=== PATIENT | male | born 1975 | race Hispanic/Latino ===

== ENCOUNTER 2021-06-04 20:37 | Inpatient (IN) | payer MEDICARE, OTHER ==
[~2021-06-04] VITALS: Ht 172.7 cm; Wt 83.5 kg
[2021-06-04 23:16] LABS: BASOPHILS % (AUTO) 0.4 % (0.0-5.0); EOSINOPHILS % (AUTO) 4.3 % (0.0-8.0); HEMATOCRIT 38.2 % (42-54); LYMPHOCYTES % (AUTO) 37.3 % (21.0-51.0); MEAN CORPUSCULAR HEMOGLOBIN 27.9 pg (27.0-33.0); MEAN CORPUSCULAR HGB CONC 31.9 g/dL (32.0-36.0); MEAN CORPUSCULAR VOLUME 87.2 fL (79-99); MONOCYTES % (AUTO) 7.2 % (3.0-13.0); NEUTROPHILS % (AUTO) 50.3 % (40.0-77.0); PLATELET COUNT (AUTO) 194 K/uL (130-400); RED BLOOD CELL COUNT(AUTO) 4.38 MIL/uL (4.50-6.20); RED CELL DISTRIBUTION WIDTH 13.4 % (11.0-15.5); WHITE BLOOD COUNT (AUTO) 8.6 K/uL (4.8-10.8)
[2021-06-04 23:30] LABS: ALBUMIN 3.7 g/dL (3.5-5.0); BILIRUBIN,TOTAL 0.2 mg/dL (0.2-1.0); CREATININE 4.6 mg/dL (0.5-1.5); POTASSIUM 4.6 mmol/L (3.5-5.1); TOTAL PROTEIN, SERUM 8.3 g/dL (6.0-8.3)
[2021-06-04 23:47] LABS: INR 0.99 (0.85-1.15); PROTHROMBIN TIME 10.8 SEC (9.6-11.6)
[2021-06-04 23:49] LABS: PARTIAL THROMBOPLASTIN TIME 28.5 SEC (26.3-35.5)
[2021-06-05] VITALS (23 sets, daily range): BP systolic 90–163; BP diastolic 49–99
[2021-06-05] MEDS ORDERED: ONDANSETRON 4MG INJ IV PRN (01:30)
[2021-06-05 02:09] LABS: HEMATOCRIT 36.7 % (42-54); MEAN CORPUSCULAR HEMOGLOBIN 28.2 pg (27.0-33.0); MEAN CORPUSCULAR HGB CONC 32.7 g/dL (32.0-36.0); MEAN CORPUSCULAR VOLUME 86.2 fL (79-99); RED BLOOD CELL COUNT(AUTO) 4.26 MIL/uL (4.50-6.20); RED CELL DISTRIBUTION WIDTH 13.4 % (11.0-15.5)
[2021-06-05 02:23] LABS: ALBUMIN 3.6 g/dL (3.5-5.0); BILIRUBIN,TOTAL 0.2 mg/dL (0.2-1.0); CREATININE 4.5 mg/dL (0.5-1.5); TOTAL PROTEIN, SERUM 8.2 g/dL (6.0-8.3)
[2021-06-05] MEDS: CLINDAMYCIN IVPB 600MG/50ML 50 ML IV SCH ×2 (02:29→10:38)
[2021-06-05] MEDS ORDERED: GLUCAGON 1MG KIT 1 MG ML IM PRN (02:30)
[2021-06-05] MEDS ORDERED: DEXTROSE 50%-WATER 50 ML DISP.SYRIN IV PRN (02:30)
[2021-06-05 02:33] LABS: INR 0.99 (0.85-1.15); PROTHROMBIN TIME 10.8 SEC (9.6-11.6)
[2021-06-05 02:34] LABS: PARTIAL THROMBOPLASTIN TIME 29.1 SEC (26.3-35.5)
[2021-06-05] MEDS: INSULIN HUMULIN R 100 UNIT/ML 3ML SQ SCH ×3 (05:48→16:35)
[2021-06-05] MEDS: FAMOTIDINE 20MG VIAL IV SCH ×2 (10:38→20:31)
[2021-06-05] MEDS ORDERED: VANCOMYCIN PROTOCOL PER PHARMACY IV SCH (14:00)
[2021-06-05] MEDS ORDERED: PHARMACY COMMUNICATION MISC SCH (14:00)
[2021-06-05] MEDS ORDERED: COMPOUND IV REFRIGERATED 1 EACH IVSOLN MISC PRN (14:30)
[2021-06-05] MEDS: VANCOMYCIN 1.25GM/NS 250ML IVPB SCH ×6 (14:30→20:32)
[2021-06-05] MEDS ORDERED: DIPH,PERTUSS(ACELL),TET VAC/PF 0.5 ML VIAL IM ONE (15:00)
[2021-06-05] MEDS ORDERED: 0.9%NACL 1000ML 1,000 ML IV PRN (17:00)
[2021-06-05] MEDS: 0.9%NACL 50ML 50 ML IV SCH (22:37)
[2021-06-05] MEDS: ZOSYN 3.375GM +NS 50ML IV SCH (22:37)
[2021-06-06] VITALS (24 sets, daily range): BP systolic 76–163; BP diastolic 44–97
[2021-06-06] MEDS ORDERED: METF-446 PO (03:25)
[2021-06-06] MEDS ORDERED: FAMO20TA8 PO (03:25)
[2021-06-06] MEDS ORDERED: DOXY-336 PO (03:25)
[2021-06-06] MEDS ORDERED: MUPI22O TP (03:25)
[2021-06-06] MEDS ORDERED: [UNRECOGNIZED DRUG - CODE] IV (03:25)
[2021-06-06] MEDS ORDERED: LISI20TA24 PO (03:25)
[2021-06-06] MEDS ORDERED: AMLO-257 PO (03:25)
[2021-06-06] MEDS ORDERED: GABA600T10 PO (03:25)
[2021-06-06] MEDS ORDERED: FLUO10CA21 PO (03:25)
[2021-06-06] MEDS ORDERED: METO100T14 PO (03:25)
[2021-06-06] MEDS ORDERED: FOLI0.4T6 PO (03:25)
[2021-06-06 05:24] LABS: BASOPHILS % (AUTO) 0.4 % (0.0-5.0); EOSINOPHILS % (AUTO) 4.2 % (0.0-8.0); HEMATOCRIT 36.6 % (42-54); LYMPHOCYTES % (AUTO) 26.4 % (21.0-51.0); MEAN CORPUSCULAR HEMOGLOBIN 27.5 pg (27.0-33.0); MEAN CORPUSCULAR HGB CONC 32.2 g/dL (32.0-36.0); MEAN CORPUSCULAR VOLUME 85.3 fL (79-99); MONOCYTES % (AUTO) 7.9 % (3.0-13.0); NEUTROPHILS % (AUTO) 60.6 % (40.0-77.0); PLATELET COUNT (AUTO) 178 K/uL (130-400); RED BLOOD CELL COUNT(AUTO) 4.29 MIL/uL (4.50-6.20); RED CELL DISTRIBUTION WIDTH 13.2 % (11.0-15.5); WHITE BLOOD COUNT (AUTO) 8.3 K/uL (4.8-10.8)
[2021-06-06 05:38] LABS: ALBUMIN 3.3 g/dL (3.5-5.0); BILIRUBIN,TOTAL 0.4 mg/dL (0.2-1.0); CREATININE 3.9 mg/dL (0.5-1.5); POTASSIUM 4.8 mmol/L (3.5-5.1); TOTAL PROTEIN, SERUM 7.7 g/dL (6.0-8.3)
[2021-06-06] MEDS: INSULIN HUMULIN R 100 UNIT/ML 3ML SQ SCH ×5 (06:00→23:53)
[2021-06-06] MEDS ORDERED: LIDOCAINE HCL 1% 20 ML VIAL ONE (06:59)
[2021-06-06] MEDS ORDERED: BUPIVACAINE/PF 0.5% 30ML VIAL ONE (06:59)
[2021-06-06] MEDS ORDERED: FENTANYL CITRATE PF 50 MCG/1 ML 2ML VIAL ONE ×2 (07:53→08:25)
[2021-06-06] MEDS ORDERED: MIDAZOLAM HCL 1 MG/ML 2ML VIAL ONE ×2 (07:53→08:34)
[2021-06-06] MEDS: FAMOTIDINE 20MG VIAL IV SCH ×2 (08:42→20:18)
[2021-06-06] MEDS: ZOSYN 3.375GM +NS 50ML IV SCH ×2 (09:58→20:18)
[2021-06-06] MEDS: 0.9%NACL 50ML 50 ML IV SCH (20:18)
[2021-06-06] MEDS ORDERED: HYDROMORPHONE 0.5 MG SYG (0.5MG/0.5ML) ONE (23:19)
[2021-06-06] MEDS: HYDROMORPHONE 0.5 MG SYG (0.5MG/0.5ML) IVP PRN (23:26)
[2021-06-06] MEDS ORDERED: MORPHINE 2 MG SYG IVP PRN (23:30)
[2021-06-07] VITALS (18 sets, daily range): BP systolic 82–161; BP diastolic 39–97
[2021-06-07 04:28] LABS: BASOPHILS % (AUTO) 0.2 % (0.0-5.0); EOSINOPHILS % (AUTO) 3.6 % (0.0-8.0); HEMATOCRIT 36.5 % (42-54); LYMPHOCYTES % (AUTO) 22.6 % (21.0-51.0); MEAN CORPUSCULAR HEMOGLOBIN 27.9 pg (27.0-33.0); MEAN CORPUSCULAR HGB CONC 32.3 g/dL (32.0-36.0); MEAN CORPUSCULAR VOLUME 86.3 fL (79-99); MONOCYTES % (AUTO) 8.5 % (3.0-13.0); NEUTROPHILS % (AUTO) 64.8 % (40.0-77.0); PLATELET COUNT (AUTO) 194 K/uL (130-400); RED BLOOD CELL COUNT(AUTO) 4.23 MIL/uL (4.50-6.20); RED CELL DISTRIBUTION WIDTH 13.3 % (11.0-15.5); WHITE BLOOD COUNT (AUTO) 9.1 K/uL (4.8-10.8)
[2021-06-07 05:15] LABS: ALBUMIN 3.4 g/dL (3.5-5.0); BILIRUBIN,TOTAL 0.3 mg/dL (0.2-1.0); CREATININE 5.2 mg/dL (0.5-1.5); TOTAL PROTEIN, SERUM 7.8 g/dL (6.0-8.3)
[2021-06-07] MEDS: INSULIN HUMULIN R 100 UNIT/ML 3ML SQ SCH ×3 (06:00→18:00)
[2021-06-07] MEDS: HYDROMORPHONE 0.5 MG SYG (0.5MG/0.5ML) IVP PRN ×4 (06:37→21:21)
[2021-06-07] MEDS: FAMOTIDINE 20MG VIAL IV SCH ×2 (09:20→20:44)
[2021-06-07] MEDS: ZOSYN 3.375GM +NS 50ML IV SCH ×2 (09:20→20:44)
[2021-06-07] MEDS: GABAPENTIN 300 MG CAPSULE PO SCH ×2 (10:39→21:00)
[2021-06-07] MEDS: METOPROLOL TARTRATE 50 MG TAB PO SCH ×2 (10:39→21:00)
[2021-06-07] MEDS: FOLIC ACID 1 MG TABLET PO SCH (12:22)
[2021-06-07] MEDS: 0.9%NACL 50ML 50 ML IV SCH (20:44)
[2021-06-07] MEDS ORDERED: NON-FORMULARY MEDICATION 1 EACH (Metoprolol Tartrate 100 MG) PO SCH (21:00)
[2021-06-07] MEDS: AMLODIPINE 5 MG TAB PO SCH (21:00)
[2021-06-08] VITALS (11 sets, daily range): BP systolic 98–153; BP diastolic 50–81
[2021-06-08] MEDS: VANCOMYCIN 1.25GM/NS 250ML IVPB SCH ×2 (01:10)
[2021-06-08] MEDS: HYDROMORPHONE 0.5 MG SYG (0.5MG/0.5ML) IVP PRN ×2 (03:57→10:32)
[2021-06-08 05:44] LABS: BASOPHILS % (AUTO) 0.2 % (0.0-5.0); MEAN CORPUSCULAR HEMOGLOBIN 27.7 pg (27.0-33.0); MEAN CORPUSCULAR HGB CONC 32.6 g/dL (32.0-36.0); MEAN CORPUSCULAR VOLUME 85.2 fL (79-99); MONOCYTES % (AUTO) 10.7 % (3.0-13.0); NEUTROPHILS % (AUTO) 57.7 % (40.0-77.0); PLATELET COUNT (AUTO) 166 K/uL (130-400); RED BLOOD CELL COUNT(AUTO) 3.64 MIL/uL (4.50-6.20); RED CELL DISTRIBUTION WIDTH 13.2 % (11.0-15.5); WHITE BLOOD COUNT (AUTO) 8.3 K/uL (4.8-10.8)
[2021-06-08] MEDS: INSULIN HUMULIN R 100 UNIT/ML 3ML SQ SCH ×5 (05:48→20:54)
[2021-06-08 06:00] LABS: ALBUMIN 2.9 g/dL (3.5-5.0); BILIRUBIN,TOTAL 0.3 mg/dL (0.2-1.0); CREATININE 3.9 mg/dL (0.5-1.5); POTASSIUM 4.2 mmol/L (3.5-5.1)
[2021-06-08 08:14] LABS: HEPATITIS Bs ANTIGEN SCREEN P Negative (Negative)
[2021-06-08] MEDS: FAMOTIDINE 20MG VIAL IV SCH ×2 (08:38→20:53)
[2021-06-08] MEDS: GABAPENTIN 300 MG CAPSULE PO SCH ×2 (08:38→20:53)
[2021-06-08] MEDS: ZOSYN 3.375GM +NS 50ML IV SCH ×2 (08:38→20:52)
[2021-06-08] MEDS: METOPROLOL TARTRATE 50 MG TAB PO SCH ×2 (08:38→20:53)
[2021-06-08] MEDS: FLUOXETINE HCL 10 MG CAPSULE PO SCH (08:39)
[2021-06-08] MEDS: 0.9%NACL 50ML 50 ML IV SCH ×2 (08:39→20:52)
[2021-06-08] MEDS ORDERED: LISINOPRIL 20 MG TABLET PO SCH (09:00)
[2021-06-08] MEDS: FOLIC ACID 1 MG TABLET PO SCH (12:00)
[2021-06-08] MEDS: HYDROCODONE/ACETAMINOPHEN 5/325 MG TAB PO PRN (18:19)
[2021-06-08] MEDS: AMLODIPINE 5 MG TAB PO SCH (20:53)
[2021-06-09] VITALS (18 sets, daily range): BP systolic 102–159; BP diastolic 52–94
[2021-06-09] MEDS: HYDROCODONE/ACETAMINOPHEN 5/325 MG TAB PO PRN (02:05)
[2021-06-09] MEDS: INSULIN HUMULIN R 100 UNIT/ML 3ML SQ SCH (06:00)
[2021-06-09 06:21] LABS: BASOPHILS % (AUTO) 0.2 % (0.0-5.0); HEMATOCRIT 33.3 % (42-54); LYMPHOCYTES % (AUTO) 28.3 % (21.0-51.0); MEAN CORPUSCULAR HEMOGLOBIN 27.6 pg (27.0-33.0); MEAN CORPUSCULAR HGB CONC 31.8 g/dL (32.0-36.0); MEAN CORPUSCULAR VOLUME 86.7 fL (79-99); MONOCYTES % (AUTO) 8.5 % (3.0-13.0); NEUTROPHILS % (AUTO) 59.6 % (40.0-77.0); PLATELET COUNT (AUTO) 180 K/uL (130-400); RED BLOOD CELL COUNT(AUTO) 3.84 MIL/uL (4.50-6.20); RED CELL DISTRIBUTION WIDTH 13.2 % (11.0-15.5); WHITE BLOOD COUNT (AUTO) 10.3 K/uL (4.8-10.8)
[2021-06-09 06:31] LABS: CREATININE 5.5 mg/dL (0.5-1.5); POTASSIUM 4.5 mmol/L (3.5-5.1)
[2021-06-09] MEDS: METOPROLOL TARTRATE 50 MG TAB PO SCH (09:00)
[2021-06-09] MEDS: FAMOTIDINE 20MG VIAL IV SCH (09:56)
[2021-06-09] MEDS: 0.9%NACL 50ML 50 ML IV SCH (09:56)
[2021-06-09] MEDS: FLUOXETINE HCL 10 MG CAPSULE PO SCH (09:56)
[2021-06-09] MEDS: ZOSYN 3.375GM +NS 50ML IV SCH (09:56)
[2021-06-09] MEDS: GABAPENTIN 300 MG CAPSULE PO SCH (09:56)
[2021-06-09] MEDS: HYDROMORPHONE 0.5 MG SYG (0.5MG/0.5ML) IVP PRN (09:57)
[2021-06-09] MEDS: FOLIC ACID 1 MG TABLET PO SCH (14:44)
[2021-06-09] MEDS: VANCOMYCIN 1.25GM/NS 250ML IVPB SCH ×2 (14:45)
== END 2021-06-09 19:20 | disposition home health service (06) | DRG 617 ==
LOC: EDH 20:37 → EDHIP 06-05 01:21 → 3BH 06-05 04:37
PROVIDERS: ADMIT Internal Medicine; ATTEND Internal Medicine
PROC: 3E0234Z Introduction of Serum, Toxoid and Vaccine into Muscle, Percutaneous Approach (ICD-10-PCS; 2021-06-05)
PROC: 5A1D70Z Performance of Urinary Filtration, Intermittent, Less than 6 Hours Per Day (ICD-10-PCS; 2021-06-05)
PROC: 0Y6M0ZB Detachment at Right Foot, Partial 2nd Ray, Open Approach (ICD-10-PCS; 2021-06-06)
PROC: 0Y6M0ZC Detachment at Right Foot, Partial 3rd Ray, Open Approach (ICD-10-PCS; 2021-06-06)
PROC: 0Y6M0ZD Detachment at Right Foot, Partial 4th Ray, Open Approach (ICD-10-PCS; 2021-06-06)
PROC: 0Y6M0ZF Detachment at Right Foot, Partial 5th Ray, Open Approach (ICD-10-PCS; 2021-06-06)
PROC: 0Y6M0Z9 Detachment at Right Foot, Partial 1st Ray, Open Approach (ICD-10-PCS; principal; 2021-06-06 08:20)
PROC: 5A1D70Z Performance of Urinary Filtration, Intermittent, Less than 6 Hours Per Day (ICD-10-PCS; 2021-06-07)
PROC: 5A1D70Z Performance of Urinary Filtration, Intermittent, Less than 6 Hours Per Day (ICD-10-PCS; 2021-06-08)
PROC: 5A1D70Z Performance of Urinary Filtration, Intermittent, Less than 6 Hours Per Day (ICD-10-PCS; 2021-06-09)
DX: E11.621 Type 2 diabetes mellitus with foot ulcer (principal); I12.0 Hypertensive chronic kidney disease with stage 5 chronic kidney disease or end stage renal disease; E11.69 Type 2 diabetes mellitus with other specified complication; N18.6 End stage renal disease; E11.22 Type 2 diabetes mellitus with diabetic chronic kidney disease; E11.40 Type 2 diabetes mellitus with diabetic neuropathy, unspecified; D64.9 Anemia, unspecified; L97.519 Non-pressure chronic ulcer of other part of right foot with unspecified severity; M20.41 Other hammer toe(s) (acquired), right foot; E78.00 Pure hypercholesterolemia, unspecified; Z20.822 Contact with and (suspected) exposure to COVID-19; R53.81 Other malaise; Z23 Encounter for immunization; Z79.84 Long term (current) use of oral hypoglycemic drugs; Z99.2 Dependence on renal dialysis; Z83.3 Family history of diabetes mellitus
CPT/HCPCS: 36415; 73610; 73718; 80048; 80053; 80202; 82948; 83735; 85025; 85027; 85610; 85730; 86704; 86706; 87340; 87635; 90715; 90935; 93926; 97039; G0378; J1170; J2250; J2543; J3010; J3370; J3490; J7030; J7050

== ENCOUNTER 2024-06-14 16:20 | Inpatient (IN) | payer OTHER ==
[~2024-06-14] VITALS: Ht 172.7 cm; Wt 93.2 kg
[~2024-06-14 16:20] MED LIST: FAMO20TA8 PO; FLUO10CA21 PO; FOLI0.4T6 PO; GABA300C PO; METO25 PO; METO25TA6 PO; MUPI22O TP; SEVE800 PO
[2024-06-14] MEDS: acetaMINOPHEN 500 MG TABLET PO ONE (16:50)
[2024-06-14 17:09] LABS: BASOPHILS # (AUTO) 0.03 K/uL (0.00-0.20); BASOPHILS % (AUTO) 0.2 % (0.0-5.0); EOSINOPHILS % (AUTO) 0.6 % (0.0-8.0); HEMATOCRIT 40.6 % (42-54); IMMATURE GRANULOCYTE ABSOLUTE 0.08 K/uL (0-1); LYMPHOCYTES # (AUTO) 1.2 K/uL (1.0-4.8); LYMPHOCYTES % (AUTO) 7.7 % (21.0-51.0); MEAN CORPUSCULAR HEMOGLOBIN 28.3 pg (27.0-33.0); MEAN CORPUSCULAR HGB CONC 33.5 g/dL (32.0-36.0); MEAN CORPUSCULAR VOLUME 84.6 fL (79-99); MONOCYTES # (AUTO) 1.1 K/uL (0.1-1.0); MONOCYTES % (AUTO) 6.7 % (3.0-13.0); NEUTROPHILS # (AUTO) 13.2 K/uL (1.8-7.7); NEUTROPHILS % (AUTO) 84.3 % (40.0-77.0); PLATELET COUNT (AUTO) 157 K/uL (130-400); RED CELL DISTRIBUTION WIDTH 13.6 % (11.0-15.5); WHITE BLOOD COUNT (AUTO) 15.7 K/uL (4.8-10.8)
[2024-06-14 17:24] LABS: APPEARANCE,URINE TURBID (CLEAR); BILIRUBIN,URINE NEGATIVE (NEGATIVE); COLOR,URINE YELLOW (YELLOW); GLUCOSE, URINE (UA) 300 mg/dL (NEGATIVE); KETONES,URINE NEGATIVE (NEGATIVE); LEUKOCYTE ESTERASE ,URINE 500 Leu/uL (NEGATIVE); NITRATE,URINE NEGATIVE (NEGATIVE); OCCULT BLOOD,URINE SMALL (NEGATIVE); PH,URINE 7.5 (5.0-8.0); PROTEIN,URINE 300 mg/dL (NEGATIVE); UROBILINOGEN,URINE 0.2 mg/dL (0.2-1.0)
[2024-06-14 17:27] LABS: ADD UA MICROSCOPIC YES
[2024-06-14 17:29] LABS: POTASSIUM 4.4 mmol/L (3.5-5.1)
[2024-06-14 17:33] LABS: SARS-CoV-2, RNA, NAAT NEGATIVE SARS CoV-2 (NEGATIVE)
[2024-06-14 17:33] LABS: ALBUMIN 3.5 g/dL (3.5-5.0); BILIRUBIN,TOTAL 0.5 mg/dL (0.2-1.0); TOTAL PROTEIN, SERUM 7.7 g/dL (6.0-8.3)
[2024-06-14 17:39] LABS: INFLUENZA TYPE A Negative For Type A (NEGATIVE); INFLUENZA TYPE B Negative For Type B (NEGATIVE)
[2024-06-14 17:45] LABS: BACTERIA,URINE RARE /HPF (None Seen); SQUAMOUS EPITHELIAL CELL,UR RARE /HPF (0-2); WBC CLUMP MANY /HPF (0-1); WBC,URINE TNTC /HPF (0-1)
[2024-06-14] MEDS: cefTRIAXone 1G VIAL IVPB STA (18:24)
[2024-06-14] MEDS ORDERED: ONDANSETRON 4MG INJ IV PRN (19:00)
[2024-06-14] MEDS ORDERED: MORPHINE 4 MG SYG IV PRN (19:00)
[2024-06-14] MEDS ORDERED: hydrALAZine 20MG/ML VIAL IV PRN (19:00)
[2024-06-14] MEDS: ZOSYN 3.375GM+NS 50ML 50 ML IV SCH (20:31)
[2024-06-14] MEDS: HEParin 5,000 UNIT VIAL SQ SCH (20:31)
[2024-06-14 21:24] VITALS: BP 115/69; PULSE 125; RESP 19
[2024-06-14] MEDS: acetaMINOPHEN 325 MG TAB PO PRN (22:40)
[2024-06-14 23:41] VITALS: BP 155/86; PULSE 119; RESP 18
[2024-06-15 04:59] VITALS: BP 94/55; PULSE 106; RESP 18
[2024-06-15] MEDS: INSULIN humuLIN R 100 UNIT/ML 3ML SQ SCH (05:17)
[2024-06-15 06:16] LABS: BASOPHILS # (AUTO) 0.04 K/uL (0.00-0.20); BASOPHILS % (AUTO) 0.2 % (0.0-5.0); EOSINOPHILS # (AUTO) 0.03 K/uL (0.00-0.70); EOSINOPHILS % (AUTO) 0.1 % (0.0-8.0); HEMATOCRIT 37.6 % (42-54); IMMATURE GRANULOCYTE ABSOLUTE 0.18 K/uL (0-1); LYMPHOCYTES # (AUTO) 2.3 K/uL (1.0-4.8); MEAN CORPUSCULAR HEMOGLOBIN 28.4 pg (27.0-33.0); MEAN CORPUSCULAR HGB CONC 33.5 g/dL (32.0-36.0); MEAN CORPUSCULAR VOLUME 84.9 fL (79-99); MONOCYTES # (AUTO) 1.8 K/uL (0.1-1.0); MONOCYTES % (AUTO) 8.2 % (3.0-13.0); NEUTROPHILS # (AUTO) 18.1 K/uL (1.8-7.7); NEUTROPHILS % (AUTO) 80.7 % (40.0-77.0); PLATELET COUNT (AUTO) 146 K/uL (130-400); RED BLOOD CELL COUNT(AUTO) 4.43 MIL/uL (4.50-6.20); RED CELL DISTRIBUTION WIDTH 13.8 % (11.0-15.5); WHITE BLOOD COUNT (AUTO) 22.4 K/uL (4.8-10.8)
[2024-06-15 06:25] LABS: CREATININE 6.2 mg/dL (0.5-1.3); MAGNESIUM 1.7 mg/dL (1.80-2.40); PHOSPHORUS 2.6 mg/dL (2.5-4.9); POTASSIUM 4.8 mmol/L (3.5-5.1)
[2024-06-15] MEDS: PANTOPRAZOLE 40 MG TAB DR PO SCH (07:05)
[2024-06-15 07:32] LABS: HEMOGLOBIN A1C 6.7 % (4.0-6.0)
[2024-06-15 08:00] VITALS: BP 101/57; PULSE 113; RESP 20; O2SAT 93
[2024-06-15 11:51] VITALS: BP 117/64; PULSE 94; RESP 18
[2024-06-15 14:54] LABS: MAGNESIUM 1.9 mg/dL (1.80-2.40); PHOSPHORUS 3.4 mg/dL (2.5-4.9)
[2024-06-15 16:00] VITALS: BP 136/78; PULSE 104; RESP 18
[2024-06-15] MEDS ORDERED: GABA600T10 PO (18:55)
[2024-06-15] MEDS ORDERED: CHOL200013 PO (18:55)
[2024-06-15] MEDS ORDERED: LANT500T2 PO (18:55)
[2024-06-15] MEDS ORDERED: GLIP5TAB15 PO (18:55)
[2024-06-15] MEDS ORDERED: SERT-440 PO (18:55)
[2024-06-15] MEDS ORDERED: LISI20TA24 PO (18:55)
[2024-06-15 20:00] VITALS: BP 154/77; PULSE 113; RESP 18; O2SAT 98
[2024-06-16] VITALS (7 sets, daily range): BP systolic 133–156; BP diastolic 55–95; PULSE 104–122; RESP 17–20; O2SAT 97
[2024-06-16 04:39] LABS: BASOPHILS # (AUTO) 0.04 K/uL (0.00-0.20); BASOPHILS % (AUTO) 0.2 % (0.0-5.0); EOSINOPHILS # (AUTO) 0.15 K/uL (0.00-0.70); EOSINOPHILS % (AUTO) 0.9 % (0.0-8.0); HEMATOCRIT 35.6 % (42-54); IMMATURE GRANULOCYTE ABSOLUTE 0.08 K/uL (0-1); LYMPHOCYTES # (AUTO) 1.7 K/uL (1.0-4.8); LYMPHOCYTES % (AUTO) 10.3 % (21.0-51.0); MEAN CORPUSCULAR HEMOGLOBIN 28.8 pg (27.0-33.0); MEAN CORPUSCULAR HGB CONC 33.7 g/dL (32.0-36.0); MEAN CORPUSCULAR VOLUME 85.6 fL (79-99); MONOCYTES # (AUTO) 0.9 K/uL (0.1-1.0); MONOCYTES % (AUTO) 5.6 % (3.0-13.0); NEUTROPHILS # (AUTO) 13.5 K/uL (1.8-7.7); NEUTROPHILS % (AUTO) 82.5 % (40.0-77.0); PLATELET COUNT (AUTO) 140 K/uL (130-400); RED BLOOD CELL COUNT(AUTO) 4.16 MIL/uL (4.50-6.20); RED CELL DISTRIBUTION WIDTH 13.5 % (11.0-15.5); WHITE BLOOD COUNT (AUTO) 16.3 K/uL (4.8-10.8)
[2024-06-16 04:49] LABS: CREATININE 7.3 mg/dL (0.5-1.3); MAGNESIUM 1.5 mg/dL (1.80-2.40)
[2024-06-16] MEDS: Vitamin B Complex/Vit C/Folic Acid PO SCH (08:14)
[2024-06-16] MEDS: acetaMINOPHEN 325 MG TAB PO PRN (11:19)
[2024-06-16] MEDS ORDERED: MAGNESIUM 2GM PREMIX 50ML 50 ML IV PRN (14:00)
[2024-06-16] MEDS ORDERED: COMPOUND IV MISC 1 EACH IVSOLN MISC PRN (14:00)
[2024-06-16] MEDS ORDERED: MEROPENEM 500 MG in 0.9%NACL 100ML 100 ML IV SCH (14:00)
[2024-06-16] MEDS: MEROPENEM 500 MG in 0.9%NACL 100ML 100 ML IV SCH (14:27)
[2024-06-16] MEDS: SERTraline HCL 50 MG TABLET PO SCH (20:05)
[2024-06-16] MEDS: GABAPENTIN 300 MG CAPSULE PO SCH (20:06)
[2024-06-17] VITALS (23 sets, daily range): BP systolic 100–168; BP diastolic 56–96; PULSE 78–119; RESP 16–20; TEMP 97.5–97.8; O2SAT 96
[2024-06-17 03:46] LABS: BASOPHILS # (AUTO) 0.02 K/uL (0.00-0.20); BASOPHILS % (AUTO) 0.3 % (0.0-5.0); EOSINOPHILS # (AUTO) 0.06 K/uL (0.00-0.70); EOSINOPHILS % (AUTO) 0.8 % (0.0-8.0); HEMATOCRIT 35.9 % (42-54); IMMATURE GRANULOCYTE ABSOLUTE 0.04 K/uL (0-1); LYMPHOCYTES # (AUTO) 1.2 K/uL (1.0-4.8); LYMPHOCYTES % (AUTO) 16.5 % (21.0-51.0); MEAN CORPUSCULAR HEMOGLOBIN 28.2 pg (27.0-33.0); MEAN CORPUSCULAR HGB CONC 32.6 g/dL (32.0-36.0); MEAN CORPUSCULAR VOLUME 86.5 fL (79-99); MONOCYTES # (AUTO) 0.6 K/uL (0.1-1.0); MONOCYTES % (AUTO) 7.8 % (3.0-13.0); NEUTROPHILS # (AUTO) 5.3 K/uL (1.8-7.7); PLATELET COUNT (AUTO) 130 K/uL (130-400); RED BLOOD CELL COUNT(AUTO) 4.15 MIL/uL (4.50-6.20); RED CELL DISTRIBUTION WIDTH 13.5 % (11.0-15.5); WHITE BLOOD COUNT (AUTO) 7.2 K/uL (4.8-10.8)
[2024-06-17 03:58] LABS: MAGNESIUM 1.7 mg/dL (1.80-2.40); PHOSPHORUS 3.6 mg/dL (2.5-4.9); POTASSIUM 4.4 mmol/L (3.5-5.1)
[2024-06-17] MEDS: LANTHANUM CARBONATE 500 MG PO SCH (09:00)
[2024-06-17] MEDS ORDERED: LACE ASSESSMENT (SCORE > 11) MISC SCH (10:30)
[2024-06-17] MEDS: glipiZIDE 5MG TABLET PO SCH (11:24)
[2024-06-17] MEDS: LISINOPRIL 20 MG TABLET PO SCH (11:25)
[2024-06-17] MEDS: LACTOBACILLUS RHAMNOSUS GG 1 EACH CAP.SPRINK PO ONE (11:42)
[2024-06-17] MEDS: 0.9%NACL 1000ML 1,000 ML IV SCH (12:42)
[2024-06-17 14:37] LABS: INR 0.95 (0.85-1.15); PROTHROMBIN TIME 10.3 SEC (9.6-11.6)
[2024-06-18] VITALS (8 sets, daily range): BP systolic 106–147; BP diastolic 68–82; PULSE 69–91; RESP 17–20; O2SAT 97–99
[2024-06-18 04:22] LABS: BASOPHILS # (AUTO) 0.02 K/uL (0.00-0.20); BASOPHILS % (AUTO) 0.3 % (0.0-5.0); EOSINOPHILS # (AUTO) 0.19 K/uL (0.00-0.70); EOSINOPHILS % (AUTO) 3.1 % (0.0-8.0); HEMATOCRIT 37.1 % (42-54); IMMATURE GRANULOCYTE ABSOLUTE 0.05 K/uL (0-1); LYMPHOCYTES # (AUTO) 1.7 K/uL (1.0-4.8); LYMPHOCYTES % (AUTO) 27.3 % (21.0-51.0); MEAN CORPUSCULAR HEMOGLOBIN 28.5 pg (27.0-33.0); MEAN CORPUSCULAR HGB CONC 34.2 g/dL (32.0-36.0); MEAN CORPUSCULAR VOLUME 83.2 fL (79-99); MONOCYTES # (AUTO) 1.1 K/uL (0.1-1.0); MONOCYTES % (AUTO) 18.5 % (3.0-13.0); PLATELET COUNT (AUTO) 159 K/uL (130-400); RED BLOOD CELL COUNT(AUTO) 4.46 MIL/uL (4.50-6.20); RED CELL DISTRIBUTION WIDTH 13.2 % (11.0-15.5); WHITE BLOOD COUNT (AUTO) 6.1 K/uL (4.8-10.8)
[2024-06-18 04:45] LABS: ALBUMIN 2.9 g/dL (3.5-5.0); BILIRUBIN,TOTAL 0.4 mg/dL (0.2-1.0); MAGNESIUM 1.8 mg/dL (1.80-2.40); POTASSIUM 3.9 mmol/L (3.5-5.1); TOTAL PROTEIN, SERUM 7.6 g/dL (6.0-8.3)
[2024-06-18] MEDS: LACTOBACILLUS RHAMNOSUS GG 1 EACH CAP.SPRINK PO SCH (08:00)
[2024-06-18] MEDS: HEParin 5,000 UNIT VIAL SQ SCH (08:03)
[2024-06-18 10:41] LABS: THYROID STIMULATING HORMONE 0.48 uIU/mL (0.36-3.74)
[2024-06-18] MEDS ORDERED: COMPOUND IV MISC 1 EACH IVSOLN MISC PRN (15:00)
[2024-06-18] MEDS ORDERED: MEROPENEM 500 MG/100ML CRCL 10-25 IV SCH (15:00)
[2024-06-18] MEDS: MEROPENEM 1 GM in 0.9%NACL 100ML 100 ML IV SCH (20:33)
[2024-06-19] VITALS (19 sets, daily range): BP systolic 94–149; BP diastolic 54–79; PULSE 78–85; RESP 14–18; TEMP 97.8–98.3; O2SAT 98
[2024-06-19 05:24] LABS: HEMATOCRIT 35.9 % (42-54); MEAN CORPUSCULAR HEMOGLOBIN 28.2 pg (27.0-33.0); MEAN CORPUSCULAR VOLUME 83.1 fL (79-99); RED BLOOD CELL COUNT(AUTO) 4.32 MIL/uL (4.50-6.20); RED CELL DISTRIBUTION WIDTH 13.2 % (11.0-15.5); WHITE BLOOD COUNT (AUTO) 6.9 K/uL (4.8-10.8)
[2024-06-19 05:36] LABS: CREATININE 7.6 mg/dL (0.5-1.3); POTASSIUM 4.1 mmol/L (3.5-5.1)
[2024-06-19] MEDS ORDERED: MEROPENEM 1 GM in 0.9%NACL 100ML 100 ML IV SCH (09:00)
[2024-06-19] MEDS ORDERED: 0.9%NACL 1000ML 1,000 ML IV SCH (09:30)
[2024-06-19] MEDS ORDERED: 0.9% NACL 250ML 250 ML IV SCH (09:30)
[2024-06-19] MEDS ORDERED: [UNRECOGNIZED DRUG - CODE] PO (11:18)
[2024-06-19] MEDS ORDERED: GABAPENTIN 300 MG CAPSULE PO SCH (11:30)
[2024-06-19] MEDS: FOLic ACID 1 MG TABLET PO SCH (12:00)
[2024-06-19] MEDS: SEVELAMER HCL 800 MG TABLET PO SCH (12:00)
[2024-06-20] MEDS ORDERED: FLUoxetine HCL 10 MG CAPSULE PO SCH (09:00)
[2024-06-20] MEDS ORDERED: FAMOTIDINE 20MG TAB PO SCH (09:00)
[2024-06-20] MEDS ORDERED: (Cholecalciferol (Vitamin D3) (Vitamin D3) 50 MCG) PO SCH (09:00)
[2024-06-20 12:14] LABS: C DIFFICILE TOXIN A/B Not Detected (Not Detected); ENTEROAGGREGATIVE ECOLI Not Detected (Not Detected); GIARDIA LAMBLIA Not Detected (Not Detected); PLESIOMONAS SHIGELOIDES Not Detected (Not Detected); SAPOVIRUS Not Detected (Not Detected); SHIGELLA/ENTEROINVASIVE E COLI Not Detected (Not Detected); VIBRIO Not Detected (Not Detected); VIBRIO CHOLERAE Not Detected (Not Detected)
== END 2024-06-19 16:40 | DRG 871 ==
LOC: EDH 16:20 → EDHIP 18:49 → OBSVTOIN 18:49 → INTOOBSV 18:49 → 4DH 21:08
PROVIDERS: ADMIT Internal Medicine; ATTEND Internal Medicine
PROC: 5A1D70Z Performance of Urinary Filtration, Intermittent, Less than 6 Hours Per Day (ICD-10-PCS; principal; 2024-06-17)
PROC: 5A1D70Z Performance of Urinary Filtration, Intermittent, Less than 6 Hours Per Day (ICD-10-PCS; 2024-06-19)
DX: A41.9 Sepsis, unspecified organism (principal); N18.6 End stage renal disease; N39.0 Urinary tract infection, site not specified; D84.9 Immunodeficiency, unspecified; E87.1 Hypo-osmolality and hyponatremia; I12.0 Hypertensive chronic kidney disease with stage 5 chronic kidney disease or end stage renal disease; Z16.12 Extended spectrum beta lactamase (ESBL) resistance; Z16.24 Resistance to multiple antibiotics; Z20.822 Contact with and (suspected) exposure to COVID-19; E11.65 Type 2 diabetes mellitus with hyperglycemia; B96.20 Unspecified Escherichia coli [E. coli] as the cause of diseases classified elsewhere; D64.9 Anemia, unspecified; D69.6 Thrombocytopenia, unspecified; E11.22 Type 2 diabetes mellitus with diabetic chronic kidney disease; E11.319 Type 2 diabetes mellitus with unspecified diabetic retinopathy without macular edema; E11.40 Type 2 diabetes mellitus with diabetic neuropathy, unspecified; G47.61 Periodic limb movement disorder; E11.69 Type 2 diabetes mellitus with other specified complication; E78.5 Hyperlipidemia, unspecified; G25.3 Myoclonus; G25.81 Restless legs syndrome; K58.0 Irritable bowel syndrome with diarrhea; K62.89 Other specified diseases of anus and rectum; H54.62 Unqualified visual loss, left eye, normal vision right eye; N41.9 Inflammatory disease of prostate, unspecified; Z80.3 Family history of malignant neoplasm of breast; Z99.2 Dependence on renal dialysis; Z83.3 Family history of diabetes mellitus; Z86.16 Personal history of COVID-19; Z87.01 Personal history of pneumonia (recurrent)
CPT/HCPCS: 36415; 71045; 74176; 80048; 80053; 81001; 82728; 82948; 83036; 83540; 83605; 83735; 83880; 84100; 84145; 84439; 84443; 85025; 85027; 85610; 85730; 86140; 86704; 86706; 87040; 87086; 87186; 87340; 87507; 87635; 87804; 90935; 93005; G0378; J0696; J1644; J2185; J2543; A4600